=== PATIENT | male | born 1995 | race Caucasian/White ===

== ENCOUNTER 2023-07-09 13:00 | Emergency (ER) | payer OTHER ==
[~2023-07-09] VITALS: Ht 188 cm; Wt 106.6 kg
[2023-07-09] MEDS ORDERED: DIPHTH,PERTUSS(ACELL),TET VAC 0.5 ML VIAL (Tdap) I.M. ONE (13:15)
[2023-07-09 13:17] VITALS: BP_SYST 179; PULSE 84; RESP 18; TEMP 96.8; O2SAT 98
[2023-07-09] MEDS ORDERED: HYDROcodone/ACETAMIN 10-325 MG TAB PO ONE (13:30)
[2023-07-09] MEDS ORDERED: HYDROcodone/ACETAMIN 5-325 MG TAB (NORCO/ VICODIN) PO ONE (13:45)
[2023-07-09] MEDS ORDERED: CEPH250C PO (13:54)
[2023-07-09] MEDS ORDERED: HYDR-3917 PO (13:55)
[2023-07-09] MEDS ORDERED: cephALEXin 500 MG CAPSULE PO ONE (14:00)
[2023-07-09 14:34] VITALS: BP_SYST 179; PULSE 84; RESP 18; TEMP 96.8; O2SAT 98
== END 2023-07-09 14:33 | disposition home or self-care (01) ==
LOC: SED 13:00
DX: S67.01XA Crushing injury of right thumb, initial encounter (principal); W23.0XXA Caught, crushed, jammed, or pinched between moving objects, initial encounter; Y93.89 Activity, other specified; Y92.89 Other specified places as the place of occurrence of the external cause; Y99.0 Civilian activity done for income or pay
CPT/HCPCS: 90715; 99283